=== PATIENT | male | born 1960 | race Caucasian/White ===

== ENCOUNTER 2016-09-14 03:18 | Emergency (ER) | payer OTHER ==
[2016-09-14 03:31] VITALS: BP 153/95; PULSE 94; RESP 16; TEMP 97.9; O2SAT 95
== END 2016-09-14 03:59 | disposition left against medical advice (07) ==
DX: Z53.21 Procedure and treatment not carried out due to patient leaving prior to being seen by health care provider (principal)

== ENCOUNTER 2018-06-24 16:32 | Emergency (ER) | payer OTHER ==
--- NOTE | 2018-06-24 16:39 | EDPHY ---
H & P Time Seen by Provider: 06/24/18 16:38 HPI/ROS: CHIEF COMPLAINT: Found down on the [place] [address] HISTORY OF PRESENT ILLNESS: EMS was called because the patient was lying on the ground next to the [place] path next to a bottle of alcohol. Wilber with the cervical collar because of some visible facial trauma but the patient denies any medical complaints. Unable to walk pre-hospital setting. Had a normal glucose. REVIEW OF SYSTEMS: Eye: no change in vision ENT: no sore throat Cardiac: no chest pain or syncope Pulmonary: no cough or SOB Abdomen: no vomiting, diarrhea, abdominal pain Musculoskeletal: no back pain or neck pain Skin: Facial abrasion Neuro: no headache Constitutional: no fever : no urinary symptoms A comprehensive 10 point review of systems is otherwise negative aside from elements mentioned in the history of present illness. PAST MEDICAL HISTORY: Hypertension and alcoholism Social history: Recent alcohol, homeless General Appearance: Sleepy but opens eyes spontaneously and answers questions appropriately. Eyes: No scleral icterus. Pupils equal round reactive extraocular motion intact ENT, Mouth: Normal mucous membranes. No hemotympanum, has bridge of the nose abrasion. Respiratory: Normal respiratory effort, breath sounds equal, lungs are clear to auscultation. Cardiovascular: Regular rate and rhythm. Gastrointestinal: Abdomen is soft and non tender. Neurological: Moves all 4 extremities on command, normal sensory in extremities , speech is slurred. Face symmetric. Skin: Bridge of the nose abrasion otherwise negative Musculoskeletal: No spinal or extremity deformity or tenderness. Specifically C-spine nontender. Psychiatric: Not agitated. Emergency Department course/MDM: The plan for serial examinations. Presentation consistent with alcohol ingestion. 1900: Alert, ambulatory without ataxia, fluent speech, no medical complaints. No spinal tenderness, cervical spine cleared clinically. Smoking Status: Current some day smoker Constitutional: Initial Vital Signs Temperature (C) 36.6 C 06/24/18 16:37 Heart Rate 46 L 06/24/18 16:37 Respiratory Rate 16 06/24/18 16:37 Blood Pressure 145/94 H 06/24/18 16:37 O2 Sat (%) 92 06/24/18 16:37 O2 Delivery Mode Room Air Allergies/Adverse Reactions: No Known Allergies Allergy (Unverified 08/04/13 22:04) Home Medications: Medication Instructions Recorded NK [No Known Home Meds] 08/04/13 Medical Decision Making Differential Diagnosis: Differential diagnosis considered for altered mental status including but not limited to hypoglycemia, infectious process, electrolyte abnormality, head injury and intoxicants. Departure - Departure Disposition: Home, Routine, Self-Care Clinical Impression: Alcoholic intoxication Qualifiers: Complication of substance-induced condition: uncomplicated Qualified Code(s): F10.920 - Alcohol use, unspecified with intoxication, uncomplicated Nasal abrasion Qualifiers: Encounter type: initial encounter Qualified Code(s): S00.31XA - Abrasion of nose, initial encounter Condition: Good Instructions: Alcohol Intoxication (ED), Abrasion (ED) Referrals: Jayshree Maurer MD [Primary Care Provider] - As per Instructions
[2018-06-24 16:46] VITALS: BP 145/94
== END 2018-06-24 19:16 | disposition home or self-care (01) ==
LOC: EDUNIT#
DX: S00.31XA Abrasion of nose, initial encounter (principal); F10.920 Alcohol use, unspecified with intoxication, uncomplicated; I10 Essential (primary) hypertension; Z59.0 Homelessness